=== PATIENT | female | born 1995 | race Hispanic/Latino ===

== ENCOUNTER 2018-09-28 03:41 | Emergency (ER) | payer SELFPAY ==
[2018-09-28 04:06] VITALS: BP 115/76; TEMP 97.8; O2SAT 98
[2018-09-28 04:51] VITALS: PULSE 85; RESP 18
--- NOTE | 2018-09-28 05:02 | ED PDOC ---
HPI: Wound Care - HPI Time Seen by Provider: 09/28/18 04:09 Chief Complaint (Nursing): Trauma Chief Complaint (Provider): Chin laceration History Per: Patient Exam Limitations: no limitations Additional Complaint(s): 22 yo female with no medical problems presents for evaluation after a trip and fall. No LOC. No headache. Pt report tetanus UTD. Pt with chin laceration, no active bleeding. Past Medical History Reviewed: Historical Data, Nursing Documentation, Vital Signs Vital Signs: Last Vital Signs Temp 97.8 F 09/28/18 04:03 Pulse 851 H 09/28/18 04:03 Resp 8 L 09/28/18 04:03 BP 115/76 09/28/18 04:03 Pulse Ox 98 09/28/18 04:03 Primary Care Provider: Procedure,Nonphys - Medical History PMH: No Chronic Diseases - Surgical History Surgical History: No Surg Hx - Family History Family History: States: No Known Family Hx - Living Arrangements Living Arrangements: With Family - Social History Current smoker - smoking cessation education provided: No - Allergies Allergies/Adverse Reactions: Allergies Allergy/AdvReac Type Severity Reaction Status Date / Time No Known Allergies Allergy Verified 09/28/18 04:46 Review of Systems ROS Statement: Except As Marked, All Systems Reviewed And Found Negative Constitutional: Negative for: Fever, Chills Cardiovascular: Negative for: Chest Pain, Palpitations Respiratory: Negative for: Cough, Shortness of Breath Genitourinary Female: Negative for: Dysuria, Frequency Skin: Positive for: Other Physical Exam - Reviewed Nursing Documentation Reviewed: Yes Vital Signs Reviewed: Yes - Physical Exam Appears: Positive for: Well, Non-toxic, No Acute Distress Head Exam: Positive for: ATRAUMATIC, NORMAL INSPECTION, NORMOCEPHALIC Skin: Positive for: Warm. Negative for: Normal Color (1.5cm irregular laceration on the chin) Eye Exam: Positive for: Normal appearance ENT: Positive for: Normal ENT Inspection Neck: Positive for: Normal Cardiovascular/Chest: Negative for: Bradycardia, Tachycardia Respiratory: Negative for: Accessory Muscle Use, Respiratory Distress Gastrointestinal/Abdominal: Positive for: Normal Exam, Soft Back: Positive for: Normal Inspection Extremity: Positive for: Normal ROM Neurological/Psych: Positive for: Awake, Alert, Normal Tone - ECG O2 Sat by Pulse Oximetry: 98 Procedure: Wound Repair - Wound repair method Sutures:: # (3), Size (6.0), Type (prolene ), Technique (interrupted ) Disposition - Clinical Impression Clinical Impression: Chin laceration - Patient ED Disposition Is Patient to be Admitted: No Counseled Patient/Family Regarding: Diagnosis, Need For Followup - Disposition Disposition: Routine/Home Disposition Time: 04:48 Condition: GOOD Instructions: Laceration Repair With Stitches (DC)
== END 2018-09-28 05:11 | disposition home or self-care (01) ==
LOC: H.ER 03:41
DX: S01.81XA Laceration without foreign body of other part of head, initial encounter (principal); W01.0XXA Fall on same level from slipping, tripping and stumbling without subsequent striking against object, initial encounter; Y92.89 Other specified places as the place of occurrence of the external cause